=== PATIENT | female | born 1960 | race African-American/Black ===

== ENCOUNTER 2017-12-04 14:55 | Emergency (ER) | payer BC, OTHER ==
[~2017-12-04] VITALS: Ht 162.6 cm; Wt 137.0 kg
[~2017-12-04 14:55] MED LIST: ASPIR 8181 MG PO; CIPRO500 MG PO; FISH OIL 1,001000 M2 PO; FLAGYL500 MG PO; FLAXSEED OIL1000 M2 PO; IRON325 PO; KLOR-CON 1010 MEQ PO; LEVOTHYROXINE 0.15MG PO; ONDANSETRON HCL4 M2 PO; ZESTORETIC 20-1 EAC3 PO
[2017-12-04] MEDS ORDERED: COZAAR 25 MG TA25 M1 PO (15:07)
[2017-12-04 15:27] LABS: ABSOLUTE BASOPHILS 0.1 thou/uL (0.0-0.2); ABSOLUTE EOSINOPHILS 0.1 thou/uL (0.0-0.7); ABSOLUTE LYMPHOCYTES 2.1 thou/uL (0.8-5.3); ABSOLUTE MONOCYTES 1.2 thou/uL (0.0-1.2); ABSOLUTE NEUTROPHILS 5.5 thou/uL (1.6-8.1); BASOPHILS 0.8 %; EOSINOPHILS 0.9 %; HEMATOCRIT 35.8 % (37.0-47.0); HEMOGLOBIN 11.8 gm/dL (12.0-15.0); LYMPHOCYTES 23.7 %; MCH 30.4 pg (26.0-34.0); MCHC 33.1 g/dL (28.0-37.0); MCV 91.9 fL (80.0-100.0); MONOCYTES 13.1 %; NUCLEATED RBCS 0 /100WBC; PLATELET COUNT* 240 thou/uL (150-400); POLYS 61.5 %; RBC 3.89 mil/uL (4.20-5.00); RDW-CV 13.7 % (10.5-14.5); WBC 8.9 thou/uL (4.0-11.0)
[2017-12-04 15:35] LABS: ANION GAP 5 mmol/L (7-16); BUN 9 mg/dL (7-18); CALCIUM 8.7 mg/dL (8.5-10.1); CHLORIDE 105 mmol/L (98-107); CO2 29 mmol/L (21-32); CREATININE 0.6 mg/dL (0.6-1.3); GLUCOSE 109 mg/dL (70-99); POTASSIUM 3.7 mmol/L (3.5-5.1); SODIUM 139 mmol/L (136-145)
[2017-12-04 15:43] LABS: ALBUMIN 3.4 g/dL (3.4-5.0); ALKALINE PHOSPHATASE 91 U/L (46-116); SGOT 16 U/L (15-37); SGPT 18 U/L (30-65); TOTAL BILIRUBIN 0.6 mg/dL (<0.1-1.0); TOTAL PROTEIN 7.9 g/dL (6.4-8.2); TROPONIN-I LEVEL <0.06 ng/mL (<0.06)
[2017-12-04 17:35] LABS: URINE BILIRUBIN NEGATIVE (Negative); URINE BLOOD TRACE (Negative); URINE CLARITY CLEAR; URINE COLOR YELLOW; URINE GLUCOSE-RANDOM NEGATIVE (Negative); URINE KETONES NEGATIVE (Negative); URINE LEUKOCYTES-REFLEX NEGATIVE (Negative); URINE NITRITE-REFLEX NEGATIVE (Negative); URINE PROTEIN NEGATIVE (Negative); URINE UROBILINOGEN 0.2 E.U./dl (0.2-1.0)
[2017-12-04] MEDS ORDERED: NORCO 5-325 TA1 EACH PO (17:43)
[2017-12-04] MEDS ORDERED: POLYMYXIN B/TMP10 ML OPHTHALMIC (17:51)
[2017-12-04 18:00] VITALS: BP 194/97
--- NOTE | 2017-12-05 12:58 | EKG ---
[place] [address] ELECTROCARDIOGRAM REPORT Name: OLGA RAMOS Room: [facility]#: [id number] Admission: 12/04/17 Attend Phys: Discharge: 12/04/17 Date of : 58 Report #: [id number] THIS REPORT FOR: //name// [facility] ED Test Date: 2017-12-04 Test Time: 15:26:00 Pat Name: OLGA RAMOS Department: Room: Gender: F Rehab Office Coordinator: : 1960 Requested By: Roopa Allen Order Number: [id number] MD: Bennie Lebron Measurements Intervals [place] Rate: 87 P: 73 GA: 159 QRS: -10 QRSD: 70 T: 54 QT: 351 QTc: 423 Interpretive Statements Sinus rhythm Possible left atrial enlargement Possible Anteroseptal infarct, age indeterminate Compared to ECG 01/06/2015 11:33:40 Myocardial infarct finding now present Electronically Signed On 12-05-2017 12:57:50 CDT by Bennei Lebron [email or web address] <ELECTRONICALLY SIGNED> By: Bennie Lebron MD, [facility] 12/05/17 [id number] 1526 Bennie Lebron MD, FAC /EPI
== END 2017-12-04 18:01 | disposition home or self-care (01) ==
LOC: M.ERS 14:55
PROVIDERS: Nurse Practitioner Family
DX: H10.31 Unspecified acute conjunctivitis, right eye (principal); R10.9 Unspecified abdominal pain; I10 Essential (primary) hypertension; G47.30 Sleep apnea, unspecified; J45.909 Unspecified asthma, uncomplicated; M19.90 Unspecified osteoarthritis, unspecified site; Z86.2 Personal history of diseases of the blood and blood-forming organs and certain disorders involving the immune mechanism; Z91.041 Radiographic dye allergy status

== ENCOUNTER 2019-12-16 11:32 | Emergency (ER) | payer BC, OTHER ==
[~2019-12-16] VITALS: Ht 160 cm; Wt 90.7 kg
[~2019-12-16 11:32] MED LIST changes: +COZAAR 25 MG TA25 M1 PO; +NORCO 5-325 TA1 EACH PO; +POLYMYXIN B/TMP10 ML OPHTHALMIC
[2019-12-16 13:28] VITALS: BP 133/79
== END 2019-12-16 13:28 | disposition home or self-care (01) ==
LOC: M.ERS 11:32
DX: M79.604 Pain in right leg (principal); I10 Essential (primary) hypertension; J45.909 Unspecified asthma, uncomplicated; E66.01 Morbid (severe) obesity due to excess calories; Z91.041 Radiographic dye allergy status; Z91.013 Allergy to seafood; Z79.899 Other long term (current) drug therapy